=== PATIENT | male | born 1940 | race Caucasian/White ===

== ENCOUNTER 2018-04-20 10:24 | Inpatient (IN) | payer BC, MEDICARE ==
[~2018-04-20] VITALS: Ht 172.7 cm; Wt 49.9 kg
[2018-04-20] MEDS ORDERED: IV NORMAL SALINE 500 ML BAG IV ONE (10:30)
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
--- NOTE | 2018-04-20 10:40 | NUR ---
Medication reconciliation note: Family was able to provide minimal information about home medications. Pt's stated she will go home and get more information later.
[2018-04-20] MEDS ORDERED: LACTULOSE PO (10:43)
[2018-04-20] MEDS ORDERED: UNK ANTIBIOTIC (10:43)
[2018-04-20] MEDS ORDERED: MIDODRINE PO (10:43)
[2018-04-20] MEDS ORDERED: METOPROLOL PO (10:43)
[2018-04-20] MEDS ORDERED: UNK DIURETIC (10:43)
--- NOTE | 2018-04-20 10:47 | NUR ---
CUTTING TABLE OPERATOR AT BEDSIDE.
[2018-04-20 10:51] LABS: BASOPHILS # (AUTO) 0.1 K/uL (0.0-8.0); BASOPHILS % (AUTO) 0.8 % (0.0-2.0); CARBON DIOXIDE 23 mmol/L (21-32); CHLORIDE 100 mmol/L (98-107); CREATININE 0.9 mg/dL (0.6-1.3); EOSINOPHILS # (AUTO) 0.1 K/uL (0.0-0.7); EOSINOPHILS % (AUTO) 0.6 % (0.0-7.0); GLUCOSE 146 mg/dL (74-106); HEMATOCRIT 27.3 % (36.7-47.1); HEMOGLOBIN 9.8 g/dL (12.5-16.3); LYMPHOCYTES # (AUTO) 3.3 K/uL (20.0-40.0); LYMPHOCYTES % (AUTO) 40.2 % (20.5-51.5); MEAN CORPUSCULAR HEMOGLOBIN 37.4 uug (23.8-33.4); MEAN CORPUSCULAR HGB CONC 36 g/dL (32.5-36.3); MEAN CORPUSCULAR VOLUME 104.5 fL (73.0-96.2); MONOCYTES # (AUTO) 2.5 K/uL (2.0-10.0); MONOCYTES % (AUTO) 30.7 % (0.0-11.0); NEUTROPHILS # (AUTO) 2.3 K/uL (1.8-8.9); NEUTROPHILS % (AUTO) 27.7 % (38.5-71.5); PLATELET COUNT (AUTO) 135 K/uL (152-348); POTASSIUM 3.7 mmol/L (3.5-5.1); RED BLOOD CELL COUNT(AUTO) 2.61 MIL/uL (4.06-5.63); UREA NITROGEN, BLOOD 17 mg/dL (7-18); WHITE BLOOD COUNT (AUTO) 8.1 K/uL (3.6-10.2)
[2018-04-20 10:58] LABS: ALANINE AMINOTRANSFERASE 17 U/L (16-63); ALKALINE PHOSPHATASE 269 U/L (50-136); ASPARTATE AMINOTRANSFERASE 40 U/L (15-37); BILIRUBIN,DIRECT 2.5 mg/dL (0.0-0.2); BILIRUBIN,TOTAL 3.5 mg/dL (0.2-1.0)
[2018-04-20 11:18] LABS: BAND % (MANUAL) 4 % (0-10); LYMPHOCYTES % (MANUAL) 44 % (20-40); METAMYELOCYTES % 3 % (0-1); MONOCYTES % (MANUAL) 23 % (2-10); MYELOCYTES % 1 % (0-0); NEUTROPHILS % (MANUAL) 25 % (42-75)
--- NOTE | 2018-04-20 11:28 | NUR ---
PAGED EPIC FOR PANEL CALL - AWAITING CALLBACK FROM PAULINE RUIZ NP. ATTEMPT 1.
--- NOTE | 2018-04-20 11:39 | NUR ---
GAVE ADMITTING REPORT TO YAZMIN RICHARDSON.
--- NOTE | 2018-04-20 12:00 | NUR ---
ESTELLA TRUONG SPOKE W/ PAULINE RUIZ NIGHT WAREHOUSE MANAGER RE PT'S ADMISSION.
--- NOTE | 2018-04-20 12:37 | NUR ---
Pt. admitted to TELE 218, under care of PAULINE RUIZ NP. Belongs List completed
[2018-04-20 13:03] VITALS: BP 110/66
[2018-04-20] MEDS ORDERED: Z GUARD REMEDY PASTE 57 GM TUBE TOP PRN (13:30)
[2018-04-20] MEDS ORDERED: MAGNESIUM HYDROXIDE 30 ML LIQUID UDC PO PRN (13:30)
[2018-04-20 15:18] VITALS: BP 99/43
--- NOTE | 2018-04-20 19:50 | NUR ---
Received patient awake in bed, not in any form of distress. Patient is alert and oriented x 4.With oxygen support at 2lpm via nasal cannula, maintained. With IV access at left antecubital vein, patent and intact. No complaints at this time. Noted also with condom catheter in place, urine sample collected and sent to lab for testing. Bed in low position, side rails up x 2, call light within reach. Noise and lights subdued. Will continue to monitor.
[2018-04-20 20:09] LABS: *BILIRUBIN,URIN 1+ (NEGATIVE); *BLOOD, URINE NEGATIVE (NEGATIVE); *COLOR,URINE Brown (YELLOW); *KETONES,URINE TRACE (NEGATIVE); *UROBILINOGEN,URINE 0.2 E.U./dl (NORMAL); LEUKOCYTE ESTERASE ,URINE NEGATIVE (NEGATIVE); NITRITE, URINE NEGATIVE (NEGATIVE); PH,URINE 5.5 (5.0-8.0); UGLUCOSE NEGATIVE (NEGATIVE)
[2018-04-20 20:22] VITALS: BP 115/60
[2018-04-20 20:40] LABS: *CLARITY,URINE SLIGHTLY HAZY (CLEAR)
[2018-04-20 20:43] LABS: CALCIUM OXALATE CRYSTALS,UR RARE /HPF (NONE SEEN); MUCUS,URINE MANY /LPF (0-FEW); SQUAMOUS EPITHELIAL CELL,UR FEW /HPF (NONE SEEN); YEAST,URINE MODERATE /HPF (NONE SEEN)
[2018-04-21] MEDS: ACETAMINOPHEN 325 MG TABLET PO PRN (00:01)
[2018-04-21 00:16] VITALS: BP 105/53
[2018-04-21 02:25] LABS: BASOPHILS # (AUTO) 0.1 K/uL (0.0-8.0); EOSINOPHILS # (AUTO) 0.1 K/uL (0.0-0.7); EOSINOPHILS % (AUTO) 1.7 % (0.0-7.0); HEMATOCRIT 22.6 % (36.7-47.1); LYMPHOCYTES # (AUTO) 1.8 K/uL (20.0-40.0); LYMPHOCYTES % (AUTO) 35.6 % (20.5-51.5); MEAN CORPUSCULAR HEMOGLOBIN 36.1 uug (23.8-33.4); MEAN CORPUSCULAR HGB CONC 35 g/dL (32.5-36.3); MEAN CORPUSCULAR VOLUME 102.5 fL (73.0-96.2); MONOCYTES # (AUTO) 1.4 K/uL (2.0-10.0); MONOCYTES % (AUTO) 28.2 % (0.0-11.0); NEUTROPHILS # (AUTO) 1.6 K/uL (1.8-8.9); NEUTROPHILS % (AUTO) 33.5 % (38.5-71.5); PLATELET COUNT (AUTO) 99 K/uL (152-348); WHITE BLOOD COUNT (AUTO) 4.9 K/uL (3.6-10.2)
[2018-04-21 02:33] LABS: EOSINOPHILS % (MANUAL) 2 % (0-8); LYMPHOCYTES % (MANUAL) 36 % (20-40); MONOCYTES % (MANUAL) 28 % (2-10); NEUTROPHILS % (MANUAL) 34 % (42-75)
[2018-04-21 02:34] LABS: BASOPHILS % (MANUAL) 1 % (0-2)
[2018-04-21 02:35] LABS: CARBON DIOXIDE 25 mmol/L (21-32); CHLORIDE 99 mmol/L (98-107); GLUCOSE 110 mg/dL (74-106); MAGNESIUM 1.5 mg/dL (1.8-2.4); PHOSPHOROUS 3.2 mg/dL (2.5-4.9); POTASSIUM 3.7 mmol/L (3.5-5.1); UREA NITROGEN, BLOOD 19 mg/dL (7-18)
[2018-04-21 02:54] LABS: CHOLESTEROL 92 mg/dL (<200); HDL CHOLESTEROL 13 mg/dL (40-60); TRIGLYCERIDES 60 MG/DL (30-150)
[2018-04-21 04:23] VITALS: BP 108/56
[2018-04-21 04:34] LABS: THYROID STIMULATING HORMONE 13.167 mIU/mL (0.358-3.740)
[2018-04-21] MEDS: PANTOPRAZOLE SODIUM 40 MG TABLET.DR PO SCH (06:27)
--- NOTE | 2018-04-21 06:56 | NUR ---
Patient slept well throughout the night. Not in any form of distress. Still with access at left antecubital vein, intact. Now with air mattress and foot pumps in place. patient with condom catheter, noted minimal output this shift. No bladder distention, bladder pain noted. Bladder scan done, noted 190ml urine. Urged patient to urinate, he was able to urinate a little amount. Ensured safety and comfort.
[2018-04-21] MEDS: MAGNESIUM SULFATE/D5W 100 ML IV SCH ×3 (10:04→15:18)
[2018-04-21] MEDS: FLUCONAZOLE 200 MG TABLET PO SCH (10:05)
[2018-04-21 11:12] VITALS: BP 110/59
[2018-04-21] MEDS: CEFTRIAXONE 1 G in IV DEXTROSE 5% 50 ML IV SCH (11:33)
[2018-04-21] MEDS: AZITHROMYCIN 250 MG TABLET PO SCH (11:34)
[2018-04-21 14:57] VITALS: BP 124/103
[2018-04-21 16:45] VITALS: BP 118/62
[2018-04-21] MEDS ORDERED: RIFA550T PO (17:01)
[2018-04-21] MEDS ORDERED: MEGE40TA19 PO (17:01)
[2018-04-21] MEDS ORDERED: HYDROMORPHONE 1 MG/1 ML DISP.SYRIN IV ONE (17:45)
[2018-04-21] MEDS ORDERED: HYDR-3980 PO (18:06)
[2018-04-21] MEDS ORDERED: TRAM50TA2 PO (18:07)
[2018-04-21] MEDS ORDERED: SPIR100T5 PO (18:55)
[2018-04-21] MEDS ORDERED: DIGO125T PO (18:56)
[2018-04-21] MEDS ORDERED: DEME150T2 PO (18:58)
[2018-04-21] MEDS ORDERED: FURO-152 PO (18:58)
[2018-04-21] MEDS ORDERED: LEVO500T90 PO (18:59)
[2018-04-21 19:00] VITALS: BP 133/73
[2018-04-21] MEDS ORDERED: LACTULOSE 10 GM PO SCH (19:15)
[2018-04-21 19:21] LABS: PRE ALBUMIN 5.1 MG/DL (18.0-35.7)
--- NOTE | 2018-04-21 19:53 | NUR ---
Received patient asleep in bed, easily arousable, not in any form of distress. Patient is alert and oriented x 4.With oxygen support at 2lpm via nasal cannula, maintained. With IV access at left antecubital vein, patent and intact. Noted patient has just been given Dilaudid IV. Noted also with condom catheter in place. Still with air mattress and DVT foot pump in place. Bed in low position, side rails up x 2, call light within reach. Noise and lights subdued. Will continue to monitor.
[2018-04-22] VITALS: BP 113/68
[2018-04-22 04:00] VITALS: BP 130/55
[2018-04-22] MEDS: PANTOPRAZOLE SODIUM 40 MG TABLET.DR PO SCH (06:04)
[2018-04-22] MEDS: HYDROCODONE/APAP 10-325 MG TABLET PO PRN (06:04)
--- NOTE | 2018-04-22 06:40 | NUR ---
Patient slept well throughout the night. Not in any form of distress. Still with access at left antecubital vein, intact. Patient with condom catheter, noted minimal output this shift. No bladder distention, bladder pain noted, no urge to pee. Bladder scan done, noted 440ml urine. Per Kaylie Henry, no intervention needed with regard to patient's low urine output. Wound care done. Complained of pain after dressing change, prn pain medication given. Ensured safety and comfort.
[2018-04-22 07:34] LABS: CARBON DIOXIDE 24 mmol/L (21-32); CHLORIDE 100 mmol/L (98-107); CREATININE 0.8 mg/dL (0.6-1.3); GLUCOSE 120 mg/dL (74-106); MAGNESIUM 2.1 mg/dL (1.8-2.4); PHOSPHOROUS 3.2 mg/dL (2.5-4.9); UREA NITROGEN, BLOOD 17 mg/dL (7-18)
[2018-04-22 07:41] LABS: BASOPHILS # (AUTO) 0.1 K/uL (0.0-8.0); EOSINOPHILS # (AUTO) 0.1 K/uL (0.0-0.7); EOSINOPHILS % (AUTO) 1.8 % (0.0-7.0); HEMATOCRIT 23.5 % (36.7-47.1); HEMOGLOBIN 8.4 g/dL (12.5-16.3); MEAN CORPUSCULAR HEMOGLOBIN 36.3 uug (23.8-33.4); MEAN CORPUSCULAR HGB CONC 36 g/dL (32.5-36.3); MEAN CORPUSCULAR VOLUME 101.5 fL (73.0-96.2); MONOCYTES # (AUTO) 1.7 K/uL (2.0-10.0); MONOCYTES % (AUTO) 26.6 % (0.0-11.0); NEUTROPHILS # (AUTO) 2.5 K/uL (1.8-8.9); NEUTROPHILS % (AUTO) 39.6 % (38.5-71.5); PLATELET COUNT (AUTO) 103 K/uL (152-348); WHITE BLOOD COUNT (AUTO) 6.3 K/uL (3.6-10.2)
[2018-04-22 07:43] LABS: RED BLOOD CELL COUNT(AUTO) 2.32 MIL/uL (4.06-5.63)
[2018-04-22] MEDS ORDERED: LACTULOSE 20 G/30 ML LIQUID UDC PO PRN (07:45)
--- NOTE | 2018-04-22 08:00 | NUR ---
AWAKE ALERT ORTX3 SOME FORGETFUL BUT ABLE TO FOLLOW SIMPLE DIRECTION WELL NO RESPIRATORY DISTRESS CONTINUE O2 AT 2L O2 SAT WNL ON ASPIRATION AND FALL PRECAUTION BED ALARM ON AND CALL LIGHT IN REACH
[2018-04-22] MEDS: MEGESTROL ACETATE 20 MG TABLET PO SCH ×2 (08:12→17:23)
[2018-04-22] MEDS: DEMECLOCYCLINE HCL 150 MG TABLET PO SCH ×2 (08:12→17:22)
[2018-04-22] MEDS: SPIRONOLACTONE 50 MG TABLET PO SCH (08:12)
[2018-04-22] MEDS: FLUCONAZOLE 200 MG TABLET PO SCH (08:13)
[2018-04-22 08:23] LABS: ABG BASE EXCESS 0.3 mmol/L; ABG HCO3 23.7 mmol/L; ABG PH 7.474 (7.350-7.450); ABG PO2 80.6 mmHg (75.0-100.0); ABG SITE RIGHT RADIAL; ABG TOTAL HEMOGLOBIN 8.4 G/dL (13.5-18.0); COHb 1.8 % (0.5-1.5); MetHb 0.6 % (0.0-1.5); O2Hb 93.6 % (94.0-97.0); VENT MODE Nasal Cannula
--- NOTE | 2018-04-22 08:30 | NUR ---
C/O PAIN ON BACK WOUND MEDICATION PO PRN GIVEN ORDER AND REPOSITION EAT BREAKFAST MOD AMT PO FLD MARLEN WELL
[2018-04-22] MEDS: TRAMADOL HCL 50 MG TABLET PO PRN ×3 (08:33→22:30)
[2018-04-22] MEDS ORDERED: MIDODRINE 10 MG PO SCH (09:00)
[2018-04-22] MEDS ORDERED: METOPROLOL 12.5 MG PO SCH (09:00)
[2018-04-22] MEDS ORDERED: FUROSEMIDE 20 MG TABLET PO SCH (09:00)
[2018-04-22] MEDS ORDERED: LEVOFLOXACIN 500 MG TABLET PO SCH ×2 (09:00)
[2018-04-22] MEDS ORDERED: RIFAXIMIN 550 MG TABLET PO SCH (09:00)
[2018-04-22] MEDS ORDERED: DIGOXIN 125 MCG TABLET PO SCH (09:00)
[2018-04-22] MEDS ORDERED: METOPROLOL TARTRATE 25 MG TABLET PO SCH (09:00)
[2018-04-22] MEDS: AZITHROMYCIN 250 MG TABLET PO SCH (09:37)
[2018-04-22] MEDS: MIDODRINE HCL 5 MG TABLET PO SCH ×3 (09:37→17:00)
[2018-04-22 10:39] LABS: BAND % (MANUAL) 12 % (0-10); BASOPHILS % (MANUAL) 1 % (0-2); EOSINOPHILS % (MANUAL) 2 % (0-8); LYMPHOCYTES % (MANUAL) 28 % (20-40); METAMYELOCYTES % 5 % (0-1); MONOCYTES % (MANUAL) 23 % (2-10); MYELOCYTES % 2 % (0-0); NEUTROPHILS % (MANUAL) 27 % (42-75)
--- NOTE | 2018-04-22 11:00 | NUR ---
DR JACQUES HERE AND ORDER US GUIDED THORACENTESIS JADE LUNG TODAY CONSENT SIGNS STATE PAIN MED HELP TO RELIEF PAIN
--- NOTE | 2018-04-22 11:13 | NUR ---
Recommend adding MV+Mineral tab qd, Vit C 1-2g BID x14 days, ZnSO4 220mg x14 days, Vit A 700-900mg qd x 10 days to maximize wound healing. Addendum: 04/22/18 at [address] Amended: Links added.
[2018-04-22 11:26] VITALS: BP 95/60
[2018-04-22] MEDS: CEFTRIAXONE 1 G in IV DEXTROSE 5% 50 ML IV SCH (11:32)
--- NOTE | 2018-04-22 14:00 | NUR ---
RADIOLOGY WAS CALL TO F/U US OF THORACENTESIS BOND TRADER STATE HE WILL CALL US TECH AND RADIOLOGY AND WILL CALL BACK TO LET US KNOW ,PT AND FAMILY WAS INFORM
[2018-04-22 15:38] VITALS: BP 114/59
--- NOTE | 2018-04-22 17:30 | NUR ---
STABLE CONDITION NO RESPIRATORY DISTRESS ,PAIN UNDER CONTROL ON FALL /ASPIRATION PRECAUTION EAT DINNER MOD AMT PO FLD ENC MARLEN SMALL CONDOM CATH INPLACE URINE DK CHRIS SMALL AMT NO BLADDER DISTENTION /OR PAIN RESTING QUIET SAFETY MEASURE PROVIDED
[2018-04-22] MEDS: ONDANSETRON 4 MG/2 ML VIAL IV PRN (18:26)
[2018-04-22] MEDS ORDERED: RIFAXIMIN 550 MG TABLET PO ONE (18:30)
--- NOTE | 2018-04-22 19:30 | NUR ---
RECEIVED PATIENT IN BED ALERT, ORIENTED, NO SOB NO CHEST PAIN, TELE MONITOR SINUS RHYTHM 86, 98% AT 2 LPM, CONDOM CATH DRAINING WITH CHRIS COLOR URINE IN SMALL AMOUNT, PATIENT DOES NOT DRINK ENOUGH WATER, TRIED TO ENCOURAGE TO DRINK, TURN AND REPOSITION EVERY TWO HOURS. CONT TO MONITOR.
[2018-04-22 20:30] VITALS: BP 96/53
[2018-04-23 00:25] VITALS: BP 112/61
--- NOTE | 2018-04-23 06:11 | NUR ---
PATIENT SLEPT MOST OF THE NIGHT, NO SOB NO CHEST PAIN, TELE MONITOR SINUS RHYTHM, DENIES PAIN AT THIS TIME, CONDOM CATH STILL IN PLACE, TURN AND REPOSITION EVERY TWO AND NEEDED, PATIENT DRANK THE BOTTLE OF ENSURE, AND TWO CUPS OF WATER. TURN AND REPOSITION EVERY TWO AND NEEDED, BP STABLE,
[2018-04-23] MEDS: PANTOPRAZOLE SODIUM 40 MG TABLET.DR PO SCH (06:31)
[2018-04-23 06:57] LABS: CARBON DIOXIDE 24 mmol/L (21-32); CHLORIDE 101 mmol/L (98-107); CREATININE 0.8 mg/dL (0.6-1.3); GLUCOSE 147 mg/dL (74-106); MAGNESIUM 1.9 mg/dL (1.8-2.4); PHOSPHOROUS 2.9 mg/dL (2.5-4.9); POTASSIUM 4.3 mmol/L (3.5-5.1); UREA NITROGEN, BLOOD 17 mg/dL (7-18)
[2018-04-23 07:17] LABS: BASOPHILS # (AUTO) 0.1 K/uL (0.0-8.0); BASOPHILS % (AUTO) 1.1 % (0.0-2.0); EOSINOPHILS # (AUTO) 0.1 K/uL (0.0-0.7); EOSINOPHILS % (AUTO) 0.9 % (0.0-7.0); HEMATOCRIT 22.7 % (36.7-47.1); HEMOGLOBIN 7.9 g/dL (12.5-16.3); LYMPHOCYTES # (AUTO) 3.3 K/uL (20.0-40.0); LYMPHOCYTES % (AUTO) 29.3 % (20.5-51.5); MEAN CORPUSCULAR HEMOGLOBIN 35.6 uug (23.8-33.4); MEAN CORPUSCULAR HGB CONC 35 g/dL (32.5-36.3); MONOCYTES # (AUTO) 2.5 K/uL (2.0-10.0); MONOCYTES % (AUTO) 22.1 % (0.0-11.0); NEUTROPHILS # (AUTO) 5.3 K/uL (1.8-8.9); NEUTROPHILS % (AUTO) 46.6 % (38.5-71.5); PLATELET COUNT (AUTO) 101 K/uL (152-348); WHITE BLOOD COUNT (AUTO) 11.4 K/uL (3.6-10.2)
[2018-04-23 07:22] LABS: RED BLOOD CELL COUNT(AUTO) 2.23 MIL/uL (4.06-5.63)
[2018-04-23] MEDS: DEMECLOCYCLINE HCL 150 MG TABLET PO SCH ×2 (08:19→16:39)
[2018-04-23] MEDS: TRAMADOL HCL 50 MG TABLET PO PRN ×2 (08:27→21:35)
[2018-04-23] MEDS: MEGESTROL ACETATE 20 MG TABLET PO SCH ×2 (08:40→16:40)
--- NOTE | 2018-04-23 08:43 | NUR ---
WOUND CARE CONSULT WOUND CARE RECEIVED CONSULT ADMITTED WITH WOUND VAC. WOUND CARE HAS DEFERRED CONSULT AND TREATMENT PLANS TO GEN SURGEON Jaime ZEPEDA WHO IS CURRENTLY FOLLOWING THIS PATIENT. PATIENT IS BEING FOLLOWED AN OUTPATIENT FOR HIS SACRAL WOUND BY DR TEE JONES AT [facility] [phone]. ALL PRESSURE ULCER PREVENTION MEASURES ARE NOTED TO BE IN PLACE. 1ST STEP BHAKTI MATTRESS IN PLACE. WOUND CARE WILL SEE PRN. THERE ARE WOUND ORDERS NOTED TO BE IN PLACE.
[2018-04-23] MEDS: SPIRONOLACTONE 50 MG TABLET PO SCH (09:00)
[2018-04-23] MEDS: MIDODRINE HCL 5 MG TABLET PO SCH ×3 (09:20→16:40)
[2018-04-23] MEDS: FUROSEMIDE 20 MG TABLET PO SCH (09:20)
[2018-04-23 10:12] LABS: BAND % (MANUAL) 7 % (0-10); LYMPHOCYTES % (MANUAL) 29 % (20-40); METAMYELOCYTES % 5 % (0-1); MONOCYTES % (MANUAL) 19 % (2-10); MYELOCYTES % 1 % (0-0); NEUTROPHILS % (MANUAL) 39 % (42-75)
[2018-04-23 11:04] VITALS: BP 100/45
[2018-04-23] MEDS: AZITHROMYCIN 250 MG TABLET PO SCH (11:10)
[2018-04-23] MEDS: RIFAXIMIN 550 MG PO SCH ×2 (11:10→21:12)
[2018-04-23] MEDS: CEFTRIAXONE 1 G in IV DEXTROSE 5% 50 ML IV SCH (11:10)
--- NOTE | 2018-04-23 15:00 | NUR ---
Stan, from lab in [place] called and stated that he received the bone specimen today and will have results by Monday.
[2018-04-23 15:05] VITALS: BP 96/47
--- NOTE | 2018-04-23 18:11 | NUR ---
patient is resting in bed comfortably. Patient remain at bedaside through out the shift. Patient complain of lower back pain related to wound. Pain is being managed with medication and patient is responding well. Patient had a thoracentesis guided through ultrasound today of the right lung and 1 L of fluid was removed. Patient is receiving antibiotics and vital signs are WNL and continue to be at patients baseline. Patient is had 3 large bowel movements today. Patient wound was cleansed and treated twice today due to soiling by feces. Patient is alert and oriented x2 but is compliant with medical regimen and treatment. Patient is able to intake food when educated about importance. Patient is able to verbalize needs and needs were met.
--- NOTE | 2018-04-23 19:45 | NUR ---
RECEIVED PATIENT IN BED, AWAKE, NO SOB NO CHEST PAIN NOTED, BP STABLE, ON OXYGEN 2LPM WITH 95% SAT. CONDOM CATH PATENT DRAINING WITH YELLOW COLOR URINE IN MODERATE AMOUNT. DENIES PAIN AT THIS TIME. REMAIN IN CONTACT ISOLATION DUE TO DIARRHEA, WILL CONT TO MONITOR.
[2018-04-23 19:55] VITALS: BP 90/43
--- NOTE | 2018-04-23 21:30 | NUR ---
PATIENT AWAKE, NO SOB NO CHEST PAIN NOTED, TREATMENT DONE ON SACRUM WOUND, RENDERED GOOD DALIA CARE, CONDOM CATH PATENT DRAINING WITH YELLOW COLOR URINE IN MODERATE AMOUNT. TURN AND REPOSITION, WILL MEDICATE FOR PAIN, CONT TO MONITOR.
[2018-04-24] VITALS (12 sets, daily range): BP systolic 92–115; BP diastolic 45–57
--- NOTE | 2018-04-24 05:03 | NUR ---
PATIENT HAS BM WITH BLOOD CLOTS IN MODERATE AMOUNT, BP STABLE, AT THIS TIME. NOTIFY GRACE DAMON CUTTER GRINDER WITH NO NEW ORDER AT THIS TIME. WILL CONT TO MONITOR.
[2018-04-24 05:14] LABS: BASOPHILS # (AUTO) 0.1 K/uL (0.0-8.0); EOSINOPHILS # (AUTO) 0.1 K/uL (0.0-0.7); LYMPHOCYTES % (AUTO) 28.8 % (20.5-51.5); MEAN CORPUSCULAR HEMOGLOBIN 35.9 uug (23.8-33.4); MEAN CORPUSCULAR HGB CONC 35 g/dL (32.5-36.3); MEAN CORPUSCULAR VOLUME 101.9 fL (73.0-96.2); MONOCYTES # (AUTO) 2.5 K/uL (2.0-10.0); NEUTROPHILS # (AUTO) 4.7 K/uL (1.8-8.9); NEUTROPHILS % (AUTO) 45.2 % (38.5-71.5); PLATELET COUNT (AUTO) 89 K/uL (152-348); WHITE BLOOD COUNT (AUTO) 10.4 K/uL (3.6-10.2)
[2018-04-24 05:15] LABS: RED BLOOD CELL COUNT(AUTO) 1.96 MIL/uL (4.06-5.63)
[2018-04-24 05:30] LABS: CARBON DIOXIDE 26 mmol/L (21-32); CHLORIDE 100 mmol/L (98-107); CREATININE 0.9 mg/dL (0.6-1.3); GLUCOSE 164 mg/dL (74-106); MAGNESIUM 1.8 mg/dL (1.8-2.4); POTASSIUM 4.5 mmol/L (3.5-5.1); UREA NITROGEN, BLOOD 23 mg/dL (7-18)
[2018-04-24 05:40] LABS: THYROID STIMULATING HORMONE 10.389 mIU/mL (0.358-3.740)
[2018-04-24] MEDS: PANTOPRAZOLE SODIUM 40 MG TABLET.DR PO SCH (05:42)
[2018-04-24 05:50] LABS: URIC ACID 5.7 mg/dL (3.5-7.2)
--- NOTE | 2018-04-24 05:57 | NUR ---
PATIENT AWAKE ALERT,SLEPT MOST OF THE NIGHT, DENIES PAIN AT THIS TIME. TURN AND REPOSITION, NO FURTHER BM WITH BLOOD CLOTS NOTED, TX CONT ON SACRUM WOUND, CONDOM CATH PATENT, DRAINING WITH YELLOW COLOR URINE, REMAINS IN CONTACT ISOLATION FOR POSSIBLE C DIFFICILE. CONT TO MONITOR.
[2018-04-24 06:23] LABS: BAND % (MANUAL) 10 % (0-10); EOSINOPHILS % (MANUAL) 1 % (0-8); LYMPHOCYTES % (MANUAL) 17 % (20-40); METAMYELOCYTES % 3 % (0-1); MONOCYTES % (MANUAL) 16 % (2-10); MYELOCYTES % 2 % (0-0); NEUTROPHILS % (MANUAL) 51 % (42-75)
--- NOTE | 2018-04-24 08:00 | NUR ---
Notified MATHEW Solano, for patient lab values og HgB 7.0 NSD hcT of 20.0. Will follow up for orders.
[2018-04-24] MEDS: RIFAXIMIN 550 MG PO SCH ×2 (08:03→22:04)
[2018-04-24] MEDS: DEMECLOCYCLINE HCL 150 MG TABLET PO SCH ×2 (08:03→16:56)
[2018-04-24] MEDS: MIDODRINE HCL 5 MG TABLET PO SCH ×3 (08:03→16:59)
[2018-04-24] MEDS: FLUCONAZOLE 100 MG TABLET PO SCH (08:03)
[2018-04-24] MEDS: MEGESTROL ACETATE 20 MG TABLET PO SCH ×2 (08:03→16:56)
[2018-04-24] MEDS: SPIRONOLACTONE 50 MG TABLET PO SCH (08:04)
[2018-04-24] MEDS: TRAMADOL HCL 50 MG TABLET PO PRN ×3 (08:12→22:04)
[2018-04-24] MEDS: FUROSEMIDE 20 MG TABLET PO SCH (08:20)
--- NOTE | 2018-04-24 09:00 | NUR ---
NOTIFIED JOSE ONEIL N.PArvind OF LAB VALUES OF SODIUM 128. THAD SAID NO NEW ORDERS.
[2018-04-24] MEDS: AZITHROMYCIN 250 MG TABLET PO SCH (10:30)
[2018-04-24] MEDS: CEFTRIAXONE 1 G in IV DEXTROSE 5% 50 ML IV SCH (11:25)
--- NOTE | 2018-04-24 11:40 | NUR ---
received orders from Tonya Solano to RBC and type cross and match. Order place, will follow up with laboratory
--- NOTE | 2018-04-24 13:00 | NUR ---
follow up with laboratory for RBC and type cross and match, Still pending. Will follow up.
--- NOTE | 2018-04-24 15:00 | NUR ---
followed up with Lab for blood transfusion. RBC still not ready, awaiting type cross and match.
--- NOTE | 2018-04-24 16:00 | NUR ---
followed up with Lab, packed RBC still not ready and awaiting results for secondary type cross and match. will continue to follow up
--- NOTE | 2018-04-24 16:10 | NUR ---
Post thoracentesis. Patient tolerated procedure well and is resting in bed comfortably. Will continue to monitor,
--- NOTE | 2018-04-24 16:40 | NUR ---
follow up with lab, still pending results for type cross and match. still pending packed RBC. will follow up. patient is asymptomatic with no changed in mental status.
--- NOTE | 2018-04-24 17:08 | NUR ---
LAB CONFIRMED BLOOD IS READY FOR PACS SPECIALIST. WILL BEGIN TRANSFUSION.
--- NOTE | 2018-04-24 17:40 | NUR ---
INITIATED BLOOD TRANSFUSION. WILL CONTINUE TO MONITOR FOR ADVERSE REACTIONS. YAZMIN BROWN TO VERIFY BLOOD PRODUCT AND PATIENT.
--- NOTE | 2018-04-24 17:55 | NUR ---
PATIENT VITAL SIGNS ARE WITHIN NORMAL LIMITS. PATIENT DENIES ANY PAIN OR DISCOMFORT. PATIENT DENIES ANY RESPIRATORY DISTRESS. WILL CONTINUE TO MONITOR.
--- NOTE | 2018-04-24 18:58 | NUR ---
PATIENT IS RESTING IN BED COMFORTABLY. PATIENT DENIES ANY PAIN OF DISCOMFORT AT THIS TIME. PATIENT IS RECEIVING BLOOD TRANSUION AND TOLERATING WELL WITHOUT ADVERSE REACTION. WILL ENDORSE ROD PILER OF TRANSFUSION. PATIENT IS ABLE TO VERBALIZE NEEDS AND NEEDS HAVE BEEN ATTENDED TO. VITAL SIGNS REMAIN WITHIN NORMAL LIMITS. WILL CONTINUE TO MONITOR CLOSELY AND ENDORSE PLAN OF CARE TO ROD PILER NURSE.
--- NOTE | 2018-04-24 19:20 | NUR ---
RECEIVED PATIENT IN AWAKE, VERBALLY RESPONSIVE, NO COMPLAIN OF PAIN AT THIS TIME. NO SOB NO CHEST PAIN , NO COUGHING NOTED, TURN AND REPOSITION, CONDOM CATH PATENT, V.S STABLE CONT TO MONITOR.
--- NOTE | 2018-04-24 20:32 | NUR ---
TRANSFUSED 1 UNIT RBC TOLERATE WELL NO COUGHING, NO CHEST CONGESTION NOTED, NO ADVERSE SIDE EFFECTS NOTED. V/S STABLE AT THIS TIME. WILL CONTINUE TO MONITOR.
--- NOTE | 2018-04-24 21:30 | NUR ---
PATIENT HAS LOOSE BM WITH BROWNISH BLACK COLOR IN MODERATE AMOUNT, STOOL SENT TO LAB FOR TEST ORDERED, TREATMENT DONE ON SACRUM WOUND, PATIENT MEDICATED FOR PAIN OF SACRUM WOUND. CONT TO MONITOR.
[2018-04-24 22:47] LABS: *OCCULT BLOOD STOOL POSITIVE (NEGATIVE)
[2018-04-25 04:00] VITALS: BP 94/47
[2018-04-25] MEDS: PANTOPRAZOLE SODIUM 40 MG TABLET.DR PO SCH (06:19)
[2018-04-25] MEDS: LEVOTHYROXINE SODIUM 75 MCG TABLET PO SCH (06:19)
[2018-04-25 06:50] LABS: BASOPHILS # (AUTO) 0.1 K/uL (0.0-8.0); BASOPHILS % (AUTO) 1.1 % (0.0-2.0); EOSINOPHILS # (AUTO) 0.1 K/uL (0.0-0.7); HEMATOCRIT 22.1 % (36.7-47.1); HEMOGLOBIN 7.9 g/dL (12.5-16.3); LYMPHOCYTES # (AUTO) 2.4 K/uL (20.0-40.0); LYMPHOCYTES % (AUTO) 27.2 % (20.5-51.5); MEAN CORPUSCULAR HEMOGLOBIN 35.1 uug (23.8-33.4); MEAN CORPUSCULAR HGB CONC 36 g/dL (32.5-36.3); MEAN CORPUSCULAR VOLUME 98.1 fL (73.0-96.2); MONOCYTES # (AUTO) 2.3 K/uL (2.0-10.0); MONOCYTES % (AUTO) 26.6 % (0.0-11.0); NEUTROPHILS # (AUTO) 3.9 K/uL (1.8-8.9); NEUTROPHILS % (AUTO) 44.1 % (38.5-71.5); PLATELET COUNT (AUTO) 98 K/uL (152-348); WHITE BLOOD COUNT (AUTO) 8.7 K/uL (3.6-10.2)
[2018-04-25 06:57] LABS: RED BLOOD CELL COUNT(AUTO) 2.26 MIL/uL (4.06-5.63)
[2018-04-25 07:07] LABS: ALANINE AMINOTRANSFERASE 12 U/L (16-63); ALKALINE PHOSPHATASE 256 U/L (50-136); ASPARTATE AMINOTRANSFERASE 39 U/L (15-37); CARBON DIOXIDE 25 mmol/L (21-32); CHLORIDE 101 mmol/L (98-107); CREATININE 0.7 mg/dL (0.6-1.3); GLUCOSE 139 mg/dL (74-106); MAGNESIUM 1.7 mg/dL (1.8-2.4); PHOSPHOROUS 2.7 mg/dL (2.5-4.9); POTASSIUM 4.8 mmol/L (3.5-5.1); TOTAL PROTEIN, SERUM 2.6 g/dL (6.4-8.2); UREA NITROGEN, BLOOD 24 mg/dL (7-18)
--- NOTE | 2018-04-25 07:09 | NUR ---
PATIENT HAS TOTAL 1 LARGE BM AND 3 SMALL ONES, MEDICATED FOR PAIN, TX CONT ON SACRUM, REMAIN IN CONTACT ISOLATION, FOR DIARRHEA/C DIFF, BM SENT TO LAB EARLIER. NO SOB NO CHEST PAIN, TURN AND REPOSITION, KEPT CLEAN AND DRY.
--- NOTE | 2018-04-25 07:20 | NUR ---
RECEIVED PATIENT ASLEEP IN BED, EASILY TO AWAKEN. NO SIGNS OF ACUTE DISTRESS. NO COMPLAINTS OF SOB. HEPLOCK ON THE LEFT AC IS INTACT. CONDOM CATH IS INTACT AND PATENT. SAFETY MEASURE INITIATED. BED IS LOW AND LOCKED, CALL LIGHT WITHIN REACH. WILL CONTINUE TO MONITOR.
[2018-04-25 08:00] VITALS: BP 117/57
[2018-04-25 08:17] LABS: BAND % (MANUAL) 7 % (0-10); LYMPHOCYTES % (MANUAL) 22 % (20-40); METAMYELOCYTES % 1 % (0-1); MONOCYTES % (MANUAL) 21 % (2-10); MYELOCYTES % 3 % (0-0); NEUTROPHILS % (MANUAL) 46 % (42-75)
[2018-04-25] MEDS ORDERED: ALBUMIN HUMAN 25% 100 ML IV ONE (08:30)
[2018-04-25] MEDS: FUROSEMIDE 20 MG TABLET PO SCH (09:05)
[2018-04-25] MEDS: MEGESTROL ACETATE 20 MG TABLET PO SCH ×2 (09:05→16:35)
[2018-04-25] MEDS: FLUCONAZOLE 100 MG TABLET PO SCH (09:06)
[2018-04-25] MEDS: SPIRONOLACTONE 50 MG TABLET PO SCH (09:06)
[2018-04-25] MEDS: DEMECLOCYCLINE HCL 150 MG TABLET PO SCH ×2 (09:07→16:35)
[2018-04-25 09:08] LABS: HEPATITIS A AB, IgM Negative (Negative); HEPATITIS B SURFACE AB Non Reactive (.); HEPATITIS B SURFACE AG Negative (Negative)
[2018-04-25] MEDS: MAGNESIUM SULFATE/D5W 100 ML IV SCH ×2 (09:08→14:28)
[2018-04-25] MEDS: RIFAXIMIN 550 MG PO SCH ×2 (09:09→20:24)
[2018-04-25] MEDS: MIDODRINE HCL 5 MG TABLET PO SCH ×3 (09:09→16:35)
[2018-04-25] MEDS: AZITHROMYCIN 250 MG TABLET PO SCH (09:14)
[2018-04-25 11:09] VITALS: BP 99/55
[2018-04-25] MEDS: CEFTRIAXONE 1 G in IV DEXTROSE 5% 50 ML IV SCH (11:18)
[2018-04-25 15:17] VITALS: BP 111/54
[2018-04-25] MEDS: ONDANSETRON 4 MG/2 ML VIAL IV PRN (16:46)
[2018-04-25] MEDS: ACETAMINOPHEN 325 MG TABLET PO PRN ×2 (17:34→23:29)
--- NOTE | 2018-04-25 18:28 | NUR ---
PATIENT WAS SEEN TODAY BY GI AND CARDIOLOGY (SEE NOTES). PATIENT WAS ASLEEP MOST OF SHIFT. WAS AT BED SIDE. WAS ABLE TO TAKE ALL MEDICATIONS ORDERED. TYLENOL WAS TAKEN FOR PAIN AT 1734H AND ZOFRAN GIVEN FOR NAUSEA AT 1716. DRESSING CHANGE X1 DONE. PATIENT HAD X1 MEDIUM LOOSE STOOL. CULTURE OF STOOL CAME BACK NEGATIVE FOR C.DIFF. CONTACT PRECAUTIONS DISCONTINUED. CONDOM CATH IS INTACT. SAFETY MEASURES GIVEN. BED IS LOW AND LOCKED, CALL LIGHT WITHIN REACH.
--- NOTE | 2018-04-25 19:25 | NUR ---
RECEIVED PT AWAKE, ALERT AND ORIENTEDX2. PT SHOWS NO SIGNS OF ACUTE DISTRESS.PT IV INTACT.PT ON CONDOM CATHETER INTACT.CALL LIGHT WITHIN REACH. SAFETY AND COMFORT PROVIDED. WILL CONTINUE TO MONITOR.
[2018-04-25 19:27] VITALS: BP 130/67
[2018-04-26 03:48] VITALS: BP 141/85
[2018-04-26] MEDS: PANTOPRAZOLE SODIUM 40 MG TABLET.DR PO SCH (06:29)
[2018-04-26] MEDS: LEVOTHYROXINE SODIUM 75 MCG TABLET PO SCH (06:30)
[2018-04-26] MEDS: DEMECLOCYCLINE HCL 150 MG TABLET PO SCH ×2 (06:30→16:33)
--- NOTE | 2018-04-26 06:40 | NUR ---
PT SLEPT THROUGHOUT THE SHIFT. PT SHOWS NO SIGNS OF ACUTE DISTRESS. PRESCRIBED MEDICATION GIVEN AND PT TOLERATED IT WELL. CALL LIGHT WITHIN REACH. SAFETY AND COMFORT PROVIDED. ALL NEEDS ARE MET.PT TURNED AND REPOSITIONED. CHANGED DRESSING PRN. PT GIVEN TYLENOL. PT TOLERATED IT WELL. WILL ENDORSE ACCORDINGLY TO INCOMING NURSE FOR CONTINUITY OF CARE.
[2018-04-26 07:10] LABS: BASOPHILS # (AUTO) 0.1 K/uL (0.0-8.0); BASOPHILS % (AUTO) 1.1 % (0.0-2.0); EOSINOPHILS # (AUTO) 0.1 K/uL (0.0-0.7); EOSINOPHILS % (AUTO) 0.9 % (0.0-7.0); HEMATOCRIT 25.2 % (36.7-47.1); HEMOGLOBIN 8.8 g/dL (12.5-16.3); LYMPHOCYTES # (AUTO) 2.5 K/uL (20.0-40.0); LYMPHOCYTES % (AUTO) 30.6 % (20.5-51.5); MEAN CORPUSCULAR HEMOGLOBIN 34.4 uug (23.8-33.4); MEAN CORPUSCULAR HGB CONC 35 g/dL (32.5-36.3); MEAN CORPUSCULAR VOLUME 97.9 fL (73.0-96.2); MONOCYTES # (AUTO) 2.1 K/uL (2.0-10.0); MONOCYTES % (AUTO) 25.9 % (0.0-11.0); NEUTROPHILS # (AUTO) 3.3 K/uL (1.8-8.9); NEUTROPHILS % (AUTO) 41.5 % (38.5-71.5); PLATELET COUNT (AUTO) 124 K/uL (152-348); RED BLOOD CELL COUNT(AUTO) 2.57 MIL/uL (4.06-5.63)
[2018-04-26 07:17] LABS: CARBON DIOXIDE 28 mmol/L (21-32); CHLORIDE 99 mmol/L (98-107); CREATININE 0.7 mg/dL (0.6-1.3); GLUCOSE 92 mg/dL (74-106); PHOSPHOROUS 2.7 mg/dL (2.5-4.9); POTASSIUM 4.8 mmol/L (3.5-5.1); UREA NITROGEN, BLOOD 26 mg/dL (7-18); URIC ACID 6.3 mg/dL (3.5-7.2)
[2018-04-26] MEDS: MIDODRINE HCL 5 MG TABLET PO SCH ×3 (08:06→16:33)
[2018-04-26] MEDS: FLUCONAZOLE 100 MG TABLET PO SCH (08:06)
[2018-04-26] MEDS: MEGESTROL ACETATE 20 MG TABLET PO SCH ×2 (08:07→16:33)
[2018-04-26] MEDS: RIFAXIMIN 550 MG PO SCH ×2 (08:07→20:25)
[2018-04-26] MEDS: SPIRONOLACTONE 50 MG TABLET PO SCH (08:07)
[2018-04-26] MEDS: FUROSEMIDE 20 MG TABLET PO SCH (08:07)
[2018-04-26 08:09] LABS: BAND % (MANUAL) 4 % (0-10); LYMPHOCYTES % (MANUAL) 20 % (20-40); METAMYELOCYTES % 3 % (0-1); MONOCYTES % (MANUAL) 21 % (2-10); MYELOCYTES % 3 % (0-0); NEUTROPHILS % (MANUAL) 49 % (42-75)
[2018-04-26] MEDS: CEFTRIAXONE 1 G in IV DEXTROSE 5% 50 ML IV SCH (10:12)
[2018-04-26 11:27] VITALS: BP 113/65
[2018-04-26] MEDS: ACETAMINOPHEN 325 MG TABLET PO PRN (11:55)
[2018-04-26 15:42] VITALS: BP 111/54
[2018-04-26] MEDS: HYDROCODONE/APAP 10-325 MG TABLET PO PRN (17:51)
[2018-04-26 19:00] VITALS: BP 122/58
--- NOTE | 2018-04-26 20:04 | NUR ---
Patient is awake in bed, aaox2 with confusion. Denies pain or acute distress on assessment, safety measures in place. Will continue to monitor patient
[2018-04-27] MEDS: TRAMADOL HCL 50 MG TABLET PO PRN ×2 (01:41→21:46)
[2018-04-27 04:00] VITALS: BP 103/56
[2018-04-27] MEDS: PANTOPRAZOLE SODIUM 40 MG TABLET.DR PO SCH (06:09)
[2018-04-27] MEDS: LEVOTHYROXINE SODIUM 75 MCG TABLET PO SCH (06:09)
[2018-04-27] MEDS: DEMECLOCYCLINE HCL 150 MG TABLET PO SCH ×2 (06:19→16:46)
--- NOTE | 2018-04-27 08:08 | NUR ---
RECEIVED A 78Y/O MALE PT A CASE OF SYNCOPE. PT IS A ASLEEP, ALERT AND ORIENTEDX2. PT SHOWS NO SIGNS OF ACUTE DISTRESS.PT HAS A LT AC G20, PATENT HEP-LOCKED. HES INCONTINENT URINATES USING URINAL, PT HAS A UNSTAGED SACRAL WOUND COVERED WITH MEPILEX AND A GAUZE
[2018-04-27] MEDS: FUROSEMIDE 20 MG TABLET PO SCH (09:17)
[2018-04-27] MEDS: SPIRONOLACTONE 50 MG TABLET PO SCH (09:17)
[2018-04-27] MEDS: MEGESTROL ACETATE 20 MG TABLET PO SCH ×2 (09:18→16:46)
[2018-04-27] MEDS: HYDROCODONE/APAP 10-325 MG TABLET PO PRN (09:20)
[2018-04-27] MEDS: MIDODRINE HCL 5 MG TABLET PO SCH ×3 (09:20→16:46)
[2018-04-27] MEDS: RIFAXIMIN 550 MG PO SCH ×2 (09:20→21:45)
[2018-04-27] MEDS: CEFTRIAXONE 1 G in IV DEXTROSE 5% 50 ML IV SCH (11:13)
[2018-04-27 11:45] VITALS: BP 116/59
--- NOTE | 2018-04-27 19:40 | NUR ---
RECEIVED PATIENT IN BED ALERT ORIENTED, NO SOB NO CHEST PAIN NOTED, TURN AND REPOSITION, CONT ON PAIN MANAGEMENT DUE TO SACRUM WOUND. KEPT CLEAN DRY AND COMFORTABLE.
[2018-04-27 20:44] VITALS: BP 120/61
[2018-04-28 05:01] VITALS: BP 114/59
[2018-04-28] MEDS: PANTOPRAZOLE SODIUM 40 MG TABLET.DR PO SCH (06:36)
[2018-04-28] MEDS: LEVOTHYROXINE SODIUM 75 MCG TABLET PO SCH (06:36)
[2018-04-28] MEDS ORDERED: RIFAXIMIN 550 MG TABLET ONE (08:35)
[2018-04-28] MEDS: RIFAXIMIN 550 MG PO SCH (09:28)
[2018-04-28] MEDS: FUROSEMIDE 20 MG TABLET PO SCH (09:28)
[2018-04-28] MEDS: MEGESTROL ACETATE 20 MG TABLET PO SCH ×2 (09:28→17:00)
[2018-04-28] MEDS: SPIRONOLACTONE 50 MG TABLET PO SCH (09:29)
[2018-04-28] MEDS: MIDODRINE HCL 5 MG TABLET PO SCH ×3 (09:32→17:00)
[2018-04-28] MEDS: DEMECLOCYCLINE HCL 150 MG TABLET PO SCH ×2 (10:00→16:30)
--- NOTE | 2018-04-28 11:13 | NUR ---
0700 RECEIVED REPORT FROM SLICK RN. ASSUMED CARE OF PATIENT. PATIENT IN BED RESTING WITH NO SIGNS OF DISTRESS OR DISCOMFORT AT THIS TIME. PATIENT VITALS SIGNS STABLE. PATIENT ALERT AND ORIENTED TIMES 3. 1100 PATIENT GIVEN ALL MORNING MEDICATIONS. DISCUSSED WITH FAMILY MEMBER NEED FOR EVERY TWO HOUR TURNS AND KEEPING THE WOUND ON THE SACRUM CLEAN AND DRY . PATIENT MEDICATION COMPLIANT WITH MEDICATIONS CRUSHED IN [place]. PATIENT DENIES PAIN AT THIS TIME. WILL CONTINUE TO MONITOR THROUGHOUT SHIFT. MONA DE GUZMAN RN
[2018-04-28 11:35] VITALS: BP 112/62
[2018-04-28] MEDS: HYDROCODONE/APAP 10-325 MG TABLET PO PRN (15:20)
[2018-04-28 15:52] VITALS: BP 133/59
--- NOTE | 2018-04-28 17:30 | NUR ---
At this time pt. rock picker via ambulance. Pictures taken, pt's refusing medications schedule at this time stating "hospice nurse will see him as soon as we get home". pt. verbalizing pain relieve after medicated for pain with norco.
--- NOTE | 2018-04-28 17:50 | NUR ---
At this time after signing all dcd documentation and received all belongings and medications, pt. went home via ambulance. vitals signs stable. 136/61 HR of 78afebrile 97.9. RR of 19. at pt's side all the time. Report given to ambulance staff. IV line dcd. pictures taken.
== END 2018-04-28 17:53 | disposition hospice, home (50) | DRG 981 ==
LOC: ER 10:24 → TELE 12:29 → MED 04-23 11:22
PROVIDERS: ADMIT Registered Nurse; ATTEND Registered Nurse
PROC: 0QB10ZZ Excision of Sacrum, Open Approach (ICD-10-PCS; principal; 2018-04-20)
PROC: 0W993ZX Drainage of Right Pleural Cavity, Percutaneous Approach, Diagnostic (ICD-10-PCS; 2018-04-23)
PROC: 30233N1 Transfusion of Nonautologous Red Blood Cells into Peripheral Vein, Percutaneous Approach (ICD-10-PCS; 2018-04-24)
PROC: 0W9B3ZX Drainage of Left Pleural Cavity, Percutaneous Approach, Diagnostic (ICD-10-PCS; 2018-04-24)
PROC: 30233J1 Transfusion of Nonautologous Serum Albumin into Peripheral Vein, Percutaneous Approach (ICD-10-PCS; 2018-04-25)
DX: K92.2 Gastrointestinal hemorrhage, unspecified (principal); L89.154 Pressure ulcer of sacral region, stage 4; E43 Unspecified severe protein-calorie malnutrition; J18.9 Pneumonia, unspecified organism; Z68.1 Body mass index [BMI] 19.9 or less, adult; B37.49 Other urogenital candidiasis; M46.28 Osteomyelitis of vertebra, sacral and sacrococcygeal region; C85.90 Non-Hodgkin lymphoma, unspecified, unspecified site; J91.8 Pleural effusion in other conditions classified elsewhere; R18.8 Other ascites; J98.11 Atelectasis; E86.0 Dehydration; I95.1 Orthostatic hypotension; Z85.048 Personal history of other malignant neoplasm of rectum, rectosigmoid junction, and anus; K71.7 Toxic liver disease with fibrosis and cirrhosis of liver; T45.1X5D Adverse effect of antineoplastic and immunosuppressive drugs, subsequent encounter; E88.09 Other disorders of plasma-protein metabolism, not elsewhere classified; D69.6 Thrombocytopenia, unspecified; B96.89 Other specified bacterial agents as the cause of diseases classified elsewhere; E83.42 Hypomagnesemia; E83.51 Hypocalcemia; Z74.01 Bed confinement status; Z91.19 Patient's noncompliance with other medical treatment and regimen; I51.7 Cardiomegaly; D64.9 Anemia, unspecified; E03.9 Hypothyroidism, unspecified
CPT/HCPCS: 32555; 36415; 36600; 70030-TC; 71045; 76604; 76705; 82533; 83615; 83735; 84100; 84155; 84300; 84443; 84550; 85025; 85610; 85730; 86704; 86705; 86706; 86709; 86803; 86850; 86900; 86901; 86920; 87070; 87205; 87340; 88342; 93005; 93307; 93880; A4663; G0378; J0696; J1170; J2405; J3475; J7030; J7040; J7060; P9016-BL; P9021; P9047; Q0144